=== PATIENT | female | born 1955 | race Caucasian/White ===

== ENCOUNTER 2018-01-10 17:13 | Emergency (ER) | payer MEDICAID ==
[~2018-01-10] VITALS: Ht 157.5 cm; Wt 81.7 kg
[~2018-01-10 17:13] MED LIST: BACTRIM DS TAB1 EACH PO; CHERATUSSIN DA480 ML PO; IBUPROFEN 200200 M1 PO; KEFLEX500 MG PO; NOHOMEMEDICATIONS; NORCO 5-325 TA1 EACH PO; PHENERGAN 25 MG25 M1 PO; PRILOSEC40 MG PO; ULTRAM 50MG TAB50 MG PO; ZOFRAN ODT4 MG SUBLING; ZPAK PO; ZYVOX600 MG PO
[2018-01-10 18:00] LABS: URINE BILIRUBIN NEGATIVE (Negative); URINE BLOOD 3+ (Negative); URINE CLARITY CLEAR; URINE COLOR YELLOW; URINE GLUCOSE-RANDOM NEGATIVE (Negative); URINE KETONES NEGATIVE (Negative); URINE LEUKOCYTES-REFLEX NEGATIVE (Negative); URINE NITRITE-REFLEX NEGATIVE (Negative); URINE PROTEIN TRACE (Negative)
[2018-01-10 18:09] LABS: CASTS None Seen /LPF (None Seen); CRYSTALS None Seen /LPF (None Seen); MUCUS 0-3 Light strn/LPF (None Seen); SQUAMOUS >10 Many /LPF (0-3); URINE RBC 3-10 Few /HPF (0-2); URINE WBC-REFLEX 0-5 Rare /HPF (0-5)
[2018-01-10 18:54] LABS: ABSOLUTE LYMPHOCYTES 0.8 thou/uL (0.8-5.3); ABSOLUTE MONOCYTES 0.5 thou/uL (0.0-1.2); ABSOLUTE NEUTROPHILS 3.6 thou/uL (1.6-8.1); BASOPHILS 0.5 %; EOSINOPHILS 0.8 %; HEMATOCRIT 43.8 % (37.0-47.0); HEMOGLOBIN 14.6 gm/dL (12.0-15.0); LYMPHOCYTES 16.3 %; MCH 29.9 pg (26.0-34.0); MCHC 33.4 g/dL (28.0-37.0); MCV 89.5 fL (80.0-100.0); MONOCYTES 10.4 %; NUCLEATED RBCS 0 /100WBC; PLATELET COUNT* 82 thou/uL (150-400); RDW-CV 18.1 % (10.5-14.5); WBC 5.1 thou/uL (4.0-11.0)
[2018-01-10 19:08] LABS: CALCIUM 8.9 mg/dL (8.5-10.1); CREATININE 0.7 mg/dL (0.6-1.3); POTASSIUM 3.5 mmol/L (3.5-5.1)
[2018-01-10 19:13] LABS: ALBUMIN 2.8 g/dL (3.4-5.0); TOTAL BILIRUBIN 0.9 mg/dL (<0.1-1.0); TOTAL PROTEIN 7.6 g/dL (6.4-8.2)
[2018-01-10] MEDS ORDERED: NAPROSYN500 MG PO (20:08)
[2018-01-10] MEDS ORDERED: ACETAMINOPHEN-1 EAC1 PO (20:08)
[2018-01-10] MEDS ORDERED: PHENERGAN 25 MG25 M1 PO (20:08)
[2018-01-10 20:22] VITALS: BP 166/88
== END 2018-01-10 20:23 | disposition home or self-care (01) ==
LOC: M.ERS 17:13
PROVIDERS: Physician Assistant
DX: N93.9 Abnormal uterine and vaginal bleeding, unspecified (principal); R10.9 Unspecified abdominal pain; F17.210 Nicotine dependence, cigarettes, uncomplicated; Z90.49 Acquired absence of other specified parts of digestive tract

== ENCOUNTER 2020-04-23 09:32 | Emergency (ER) | payer OTHER ==
[~2020-04-23] VITALS: Ht 160 cm; Wt 81.7 kg
[~2020-04-23 09:32] MED LIST changes: +ACETAMINOPHEN-1 EAC1 PO; +NAPROSYN500 MG PO
[2020-04-23] MEDS ORDERED: ALEVE220 M1 PO (09:40)
[2020-04-23] MEDS ORDERED: ZOFRAN ODT4 MG PO (11:16)
[2020-04-23] MEDS ORDERED: HYDROCODON-ACE1 EAC7 PO (11:16)
[2020-04-23] MEDS ORDERED: MOBIC7.5 MG PO (11:16)
[2020-04-23 11:35] VITALS: BP 1159/91
== END 2020-04-23 11:36 | disposition home or self-care (01) ==
LOC: M.ERS 09:32
DX: M25.512 Pain in left shoulder (principal); F17.210 Nicotine dependence, cigarettes, uncomplicated; Z90.49 Acquired absence of other specified parts of digestive tract; W17.89XA Other fall from one level to another, initial encounter; Y93.89 Activity, other specified; Y92.89 Other specified places as the place of occurrence of the external cause; Y99.8 Other external cause status

== ENCOUNTER 2020-08-29 16:08 | Inpatient (IN) | payer MEDICAID ==
[~2020-08-29] VITALS: Ht 160 cm; Wt 107.4 kg
--- NOTE | ~2020-08-29 | PROC ---
[address] [address] PROCEDURE REPORT Name: NITHYA PAULINO SAMANTHA Room: [address] M.R.#: [id number] Admission: 08/29/20 Attend Phys: Luz Calvo Discharge: 09/02/20 Date of : 59 Report #: [id number] THIS REPORT FOR: cc: Sophia Ibarra Michelle RNP ~ [facility],Medical Records Staff For GI report, please see the Provation report in Perceptive 7 content. By: [id number] Records Staff [facility] /MAUDE
[~2020-08-29 16:08] MED LIST changes: +ALEVE220 M1 PO; +HYDROCODON-ACE1 EAC7 PO; +MOBIC7.5 MG PO; +ZOFRAN ODT4 MG PO
[2020-08-29 16:31] VITALS: BP 147/67
[2020-08-29] MEDS ORDERED: DESYREL150 MG PO (16:38)
[2020-08-29] MEDS ORDERED: LASIX 40 MG TAB40 MG PO (16:38)
[2020-08-29] MEDS ORDERED: ROPINEROLE PO (16:40)
[2020-08-29] MEDS ORDERED: INSULIN SUBQ (16:40)
[2020-08-29 17:27] LABS: URINE BILIRUBIN NEGATIVE (Negative); URINE BLOOD NEGATIVE (Negative); URINE CLARITY CLEAR; URINE COLOR YELLOW; URINE GLUCOSE-RANDOM 3+ (Negative); URINE KETONES NEGATIVE (Negative); URINE LEUKOCYTES-REFLEX NEGATIVE (Negative); URINE NITRITE-REFLEX NEGATIVE (Negative); URINE PROTEIN NEGATIVE (Negative); URINE SPECIFIC GRAVITY 1.015 (1.005-1.030); URINE UROBILINOGEN 0.2 E.U./dl (0.2-1.0)
[2020-08-29 17:41] LABS: HEMATOCRIT 31.8 % (37.0-47.0); HEMOGLOBIN 10.4 gm/dL (12.0-15.0); MCH 28.6 pg (26.0-34.0); MCHC 32.7 g/dL (28.0-37.0); MCV 87.5 fL (80.0-100.0); MPV 10.1 fl. (7.2-11.1); NUCLEATED RBCS 0 /100WBC; RBC 3.64 mil/uL (4.20-5.00); RDW-CV 16.7 % (10.5-14.5)
[2020-08-29 17:52] LABS: PLATELET COUNT* 44 thou/uL (150-400); WBC 1.9 thou/uL (4.0-11.0)
[2020-08-29 17:54] LABS: CALCIUM 8.6 mg/dL (8.5-10.1); CREATININE 0.8 mg/dL (0.6-1.3); POTASSIUM 4.2 mmol/L (3.5-5.1)
[2020-08-29 18:06] LABS: ALBUMIN 2.1 g/dL (3.4-5.0); TOTAL PROTEIN 6.7 g/dL (6.4-8.2)
[2020-08-29 18:39] LABS: ABSOLUTE LYMPHOCYTES 0.4 thou/uL (0.8-5.3); ABSOLUTE MONOCYTES 0.2 thou/uL (0.0-1.2); ABSOLUTE NEUTROPHILS 1.3 thou/uL (1.6-8.1); ANISOCYTOSIS 1+; HYPOCHROMASIA 1+; PLATELET ESTIMATE DECREASED
[2020-08-30] VITALS (8 sets, daily range): BP systolic 98–130; BP diastolic 34–68
--- NOTE | 2020-08-30 09:40 | EKG ---
[place] [address] ELECTROCARDIOGRAM REPORT Name: NITHYA PAULINO Room: [place] [address] ADM IN [facility].#: [id number] Admission: 08/29/20 Attend Phys: John Jones Discharge: Date of : 59 Date of Service: 08/29/20 1713 Report #: [id number] THIS REPORT FOR: //name// [facility] ED Test Date: 2020-08-29 Test Time: 17:13:16 Pat Name: NITHYA PAULINO Department: Room: [facility] Gender: F Marketing Communications Coordinator: YAMILETH : 1955 Requested By: Félix Rolon Order Number: [id number] MD: Jose Peguero Measurements Intervals Gilbert Rate: 63 P: 0 NJ: 173 QRS: 2 QRSD: 92 T: 20 QT: 407 QTc: 417 Interpretive Statements Sinus rhythm Low voltage, precordial leads No previous ECG available for comparison Electronically Signed On 08-30-2020 9:40:10 HELICOPTER DISPATCH[employer] by Jose Peguero [email or web address] <ELECTRONICALLY SIGNED> By: Jose Peguero MD, [facility] 08/30/20 0940 1713 1713 Jose Peguero MD, [facility] /EPI
--- NOTE | 2020-08-30 10:45 | NUR ---
PT ORIENTED TO ROOM AND UNT, BED LOW AND LOCKED, SIDE RAILS UPX3, CALL REACH, TELE APLLIED. WILL CONTINUE TO ASSESS.
[2020-08-30 12:13] LABS: BASOPHILS 1.5 %; EOSINOPHILS 4.4 %; HEMATOCRIT 30.7 % (37.0-47.0); HEMOGLOBIN 10.3 gm/dL (12.0-15.0); LYMPHOCYTES 22.3 %; MCH 28.7 pg (26.0-34.0); MCHC 33.4 g/dL (28.0-37.0); MCV 85.9 fL (80.0-100.0); MONOCYTES 10.4 %; MPV 9.3 fl. (7.2-11.1); NUCLEATED RBCS 0 /100WBC; POLYS 61.4 %; RBC 3.58 mil/uL (4.20-5.00); RDW-CV 16.6 % (10.5-14.5)
[2020-08-30 12:20] LABS: ABSOLUTE EOSINOPHILS 0.1 thou/uL (0.0-0.7); ABSOLUTE LYMPHOCYTES 0.4 thou/uL (0.8-5.3); ABSOLUTE MONOCYTES 0.2 thou/uL (0.0-1.2); ABSOLUTE NEUTROPHILS 1.1 thou/uL (1.6-8.1)
[2020-08-30 12:25] LABS: PLATELET COUNT* 47 thou/uL (150-400); WBC 1.8 thou/uL (4.0-11.0)
[2020-08-30 12:26] LABS: INR 1.2
[2020-08-30 12:30] LABS: CALCIUM 7.6 mg/dL (8.5-10.1); CREATININE 0.7 mg/dL (0.6-1.3); MAGNESIUM 1.7 mg/dL (1.8-2.4); PHOSPHORUS* 3.6 mg/dL (2.5-4.9); POTASSIUM 4.1 mmol/L (3.5-5.1); TOTAL BILIRUBIN 0.9 mg/dL (<0.1-1.0); TOTAL PROTEIN 6.2 g/dL (6.4-8.2)
--- NOTE | 2020-08-30 13:34 | NUR ---
Pt is A&O. Resides at home alone. Pt states that she is working on getting inhome care givers through her [place] [facility], states that her DIL wants to be her caregiver. Pt has several canes, but states that she does not use them currently. Hx of HH. No hx of SNF. Pt wants a HH nurse at dc, Pt only qualifies for HH nurse with her [facility]. Goal is home at dc. Anticipate dc in a few days. H&P, face sheet, covid results and HH orders/med list need to be faxed to [facility] [phone]
[2020-08-31 03:06] LABS: HEPATITIS B SURFACE AG Negative (Negative)
[2020-08-31 04:28] VITALS: BP 112/46
--- NOTE | 2020-08-31 05:36 | NUR ---
PT IS ABLE TO COMMUNICATE HER NEEDS TO STAFF EFFECTIVELY. SHE HAS DENIED THE NEED FOR PAIN MEDICATION UP TO THIS TIME. SHE REFUSED HER AM LAB DRAW TODAY; STATED:"I'M TIRED OF GETTING POKED". GI FOLLOWING.
[2020-08-31 12:00] VITALS: BP 106/47
[2020-08-31 12:04] LABS: BASOPHILS 0.8 %; EOSINOPHILS 3.3 %; HEMATOCRIT 30.5 % (37.0-47.0); HEMOGLOBIN 10.1 gm/dL (12.0-15.0); LYMPHOCYTES 22.3 %; MCH 28.5 pg (26.0-34.0); MCHC 33.1 g/dL (28.0-37.0); MONOCYTES 10.9 %; MPV 10.4 fl. (7.2-11.1); NUCLEATED RBCS 0 /100WBC; POLYS 62.7 %; RBC 3.54 mil/uL (4.20-5.00); RDW-CV 16.4 % (10.5-14.5)
[2020-08-31 12:10] LABS: ABSOLUTE EOSINOPHILS 0.1 thou/uL (0.0-0.7); ABSOLUTE LYMPHOCYTES 0.4 thou/uL (0.8-5.3); ABSOLUTE MONOCYTES 0.2 thou/uL (0.0-1.2); ABSOLUTE NEUTROPHILS 1.1 thou/uL (1.6-8.1)
[2020-08-31 12:12] LABS: WBC 1.7 thou/uL (4.0-11.0)
[2020-08-31 12:13] LABS: PLATELET COUNT* 42 thou/uL (150-400)
[2020-08-31 12:20] LABS: CALCIUM 7.6 mg/dL (8.5-10.1); CREATININE 0.7 mg/dL (0.6-1.3); POTASSIUM 3.7 mmol/L (3.5-5.1); TOTAL BILIRUBIN 0.8 mg/dL (<0.1-1.0); TOTAL PROTEIN 6.5 g/dL (6.4-8.2)
[2020-08-31 17:17] VITALS: BP 111/47
[2020-08-31 20:54] VITALS: BP 119/60
[2020-08-31 23:36] VITALS: BP 117/50
[2020-09-01 04:24] VITALS: BP 108/40
[2020-09-01 07:30] VITALS: BP 131/60
--- NOTE | 2020-09-01 08:07 | NUR ---
PT IS ABLE TO COMMUNICATE HER NEEDS TO STAFF EFFECTIVELY. SHE HAS DENIED THE NEED FOR PAIN MEDICATION UP TO 0700 THIS MORNING. POSSIBLE EGD TOMORROW. PT REFUSING SOME LAB DRAWS.
[2020-09-01 12:00] VITALS: BP 100/38
[2020-09-01 16:00] VITALS: BP 94/44
[2020-09-01 20:00] VITALS: BP 120/44
[2020-09-01 23:35] VITALS: BP 117/4
--- NOTE | 2020-09-02 03:53 | NUR ---
ASSUMED PT CARE AT APPROX 1930. PT IS AWAKE AND ORIENTED X4. PT IS NOT IN DISTRESS, NO DESATURATIONS NOTED ON ROOM AIR. PT IS SR ON THE F[place]. PT DENIES PAIN/DISCOMFORT. PT IS REMINDED TO HAVE NOTHING BY MOUTH FOR EGD IN AM. NO ACUTE CHANGES THIS SHIFT. CALL LIGHT WITHIN REACH. HOURLY ROUNDING DONE FOR PT SAFETY.
[2020-09-02 05:34] VITALS: BP 112/54
[2020-09-02 05:54] LABS: HEMATOCRIT 32.3 % (37.0-47.0); HEMOGLOBIN 10.6 gm/dL (12.0-15.0); MCH 28.2 pg (26.0-34.0); MCHC 32.9 g/dL (28.0-37.0); MCV 85.7 fL (80.0-100.0); MPV 8.9 fl. (7.2-11.1); RBC 3.77 mil/uL (4.20-5.00); RDW-CV 16.9 % (10.5-14.5); WBC 2.2 thou/uL (4.0-11.0)
[2020-09-02 06:07] LABS: ALBUMIN 2.1 g/dL (3.4-5.0); CALCIUM 7.6 mg/dL (8.5-10.1); CREATININE 0.7 mg/dL (0.6-1.3); MAGNESIUM 1.8 mg/dL (1.8-2.4); POTASSIUM 3.8 mmol/L (3.5-5.1); TOTAL BILIRUBIN 0.8 mg/dL (<0.1-1.0); TOTAL PROTEIN 6.7 g/dL (6.4-8.2)
[2020-09-02 08:30] VITALS: BP 113/47
[2020-09-02] MEDS ORDERED: INSULIN SUBQ (13:39)
[2020-09-02] MEDS ORDERED: SPIRONOLACTONE25 MG PO (13:39)
[2020-09-02] MEDS ORDERED: LASIX 40 MG TAB40 M1 PO (13:39)
[2020-09-02] MEDS ORDERED: IRON160 M1 PO (13:44)
[2020-09-02 13:49] VITALS: BP 113/47
[2020-09-04 13:09] LABS: HCV QUANT BY PCR 3200000 IU/mL (())
== END 2020-09-02 14:10 | disposition home or self-care (01) | DRG 189 ==
LOC: M.ERS 16:08 → M.TBA-ER 21:08 → M.2W 08-30 09:42
PROVIDERS: Internal Medicine; Internal Medicine Gastroenterology; Nurse Practitioner Adult Health; Physician Assistant; ADMIT Internal Medicine; ATTEND Internal Medicine
DX: J96.01 Acute respiratory failure with hypoxia (principal); D61.818 Other pancytopenia; K76.6 Portal hypertension; R18.8 Other ascites; I85.10 Secondary esophageal varices without bleeding; K74.60 Unspecified cirrhosis of liver; D64.9 Anemia, unspecified; K72.90 Hepatic failure, unspecified without coma; I95.9 Hypotension, unspecified; R73.9 Hyperglycemia, unspecified; K31.89 Other diseases of stomach and duodenum; K44.9 Diaphragmatic hernia without obstruction or gangrene; D72.819 Decreased white blood cell count, unspecified; R16.1 Splenomegaly, not elsewhere classified; Z20.822 Contact with and (suspected) exposure to COVID-19; Z90.49 Acquired absence of other specified parts of digestive tract; Z79.899 Other long term (current) drug therapy; Z79.4 Long term (current) use of insulin; Z87.891 Personal history of nicotine dependence